=== PATIENT | female | born 1995 | race Caucasian/White ===

== ENCOUNTER 2017-11-14 12:28 | Outpatient (CLI) | payer OTHER ==
[2017-11-14 13:20] LABS: RUPTURE FETAL MEMBRANES NEGATIVE (NEGATIVE)
== END 2017-11-14 14:09 | disposition home or self-care (01) ==
LOC: OBT 12:28 → L-D 12:28 → OBT 14:09
DX: O42.113 Preterm premature rupture of membranes, onset of labor more than 24 hours following rupture, third trimester (principal); Z3A.35 35 weeks gestation of pregnancy
CPT/HCPCS: 76818; 84112

== ENCOUNTER 2017-12-10 13:38 | Inpatient (IN) | payer OTHER ==
[2017-12-10] MEDS ORDERED: MISOPROSTOL 200 MCG TAB PR ×2 (14:00→20:30)
[2017-12-10] MEDS ORDERED: METHYLERGONOVINE 0.2 MG INJ IM ×2 (14:00→20:30)
[2017-12-10] MEDS ORDERED: CARBOPROST 250 MCG INJ IM ×2 (14:00→20:30)
[2017-12-10] MEDS ORDERED: CEFAZOLIN 2 GM/50 ML (PMX) 50 ML IV (14:00)
[2017-12-10] MEDS ORDERED: OXYTOCIN 30 UNITS/LR 500 ML IV ×3 (14:00→20:30)
[2017-12-10] MEDS: LACTATED RINGER'S 1,000 ML IV ×3 (14:08→21:26)
[2017-12-10 14:18] LABS: ADD MAN DIFF? NO
[2017-12-10 14:20] LABS: WHITE BLOOD COUNT 13.1 10^3/ul (4.8-10.8)
[2017-12-10 14:20] LABS: BASOPHILS % 0.2 % (0.0-2.0); EOSINOPHILS % 0.3 % (0.0-7.0); HEMATOCRIT 38.4 % (37.0-47.0); HEMOGLOBIN 14.1 g/dl (12.0-16.0); LYMPHOCYTES # 2.8 10^3/ul (0.8-2.9); LYMPHOCYTES % 21.5 % (15.0-51.0); MEAN CORPUSCULAR HEMOGLOBIN 31.9 pg (29.0-33.0); MEAN CORPUSCULAR HGB CONC 36.7 g/dl (32.0-37.0); MEAN CORPUSCULAR VOLUME 86.9 fl (82.0-101.0); MEAN PLATELET VOLUME 11.3 fl (7.4-10.4); MONOCYTE # 0.7 10^3/ul (0.3-0.9); NEUTROPHIL # 9.5 10^3/ul (1.6-7.5); NEUTROPHILS % 72.2 % (39.0-77.0); PLATELET COUNT 201 10^3/UL (140-415); RED BLOOD COUNT 4.42 10^6/ul (4.20-5.40); RED CELL DISTRIBUTION WIDTH 12.5 % (11.5-14.5)
[2017-12-10 14:38] LABS: INR 0.95; PROTIME 12.8 Sec (11.9-14.9)
[2017-12-10 14:39] LABS: PARTIAL THROMBOPLASTIN TIME 27.5 Sec (25.0-35.0)
[2017-12-10 15:12] LABS: HEPATITIS B SURFACE ANTIGEN NEGATIVE (NEGATIVE)
[2017-12-10] MEDS ORDERED: morphine SULFATE/PF (10 MG/10 ML) INJ (15:49)
[2017-12-10] MEDS ORDERED: DEXAMETHASONE 4 MG/ML 1 ML INJ (15:57)
[2017-12-10] MEDS ORDERED: FENTAnyl 50 MCG/ML VIAL (15:57)
[2017-12-10] MEDS ORDERED: ONDANSETRON 4 MG INJ (15:57)
[2017-12-10] MEDS ORDERED: NALOXONE (0.4 MG/ML) INJ IV (17:30)
[2017-12-10] MEDS ORDERED: morphine 2 MG INJ IV ×2 (17:30)
[2017-12-10] MEDS ORDERED: ZOLPIDEM 5 MG TAB PO (17:30)
[2017-12-10 17:31] LABS: RAPID PLASMA REAGIN NONREACTIVE (NR)
[2017-12-10] MEDS: ONDANSETRON 4 MG INJ IV (17:33)
[2017-12-10] MEDS ORDERED: OXYCODONE/ACETAMINOPHEN (5/325) TAB PO (20:30)
[2017-12-10] MEDS ORDERED: NA PHOSPHATE/BIPHOS 133 ML ENEMA PR (20:30)
[2017-12-10] MEDS: SENNA/DOCUSATE NA (8.6MG/50MG) TAB PO (21:00)
[2017-12-10] MEDS: KETOROLAC 30 MG INJ IV (21:26)
[2017-12-10] MEDS: CEFAZOLIN 2 GM/50 ML (PMX) 50 ML IV (21:26)
[2017-12-10] MEDS: IBUPROFEN 800 MG TAB PO (22:00)
[2017-12-11] MEDS: CEFAZOLIN 2 GM/50 ML (PMX) 50 ML IV ×2 (04:14→12:22)
[2017-12-11] MEDS: DIPHENHYDRAMINE 50 MG INJ IV (05:42)
[2017-12-11] MEDS: LACTATED RINGER'S 1,000 ML IV ×3 (05:42→20:03)
[2017-12-11] MEDS: CLINDAMYCIN 300 MG CAP PO ×2 (06:00→12:22)
[2017-12-11] MEDS: IBUPROFEN 800 MG TAB PO ×3 (06:00→21:16)
[2017-12-11 08:43] LABS: ADD MAN DIFF? NO
[2017-12-11 08:56] LABS: ABNORMAL IP MESSAGE 1; BASOPHILS % 0.2 % (0.0-2.0); HEMATOCRIT 33.1 % (37.0-47.0); HEMOGLOBIN 12.1 g/dl (12.0-16.0); LYMPHOCYTES % 13.4 % (15.0-51.0); MEAN CORPUSCULAR HEMOGLOBIN 32.1 pg (29.0-33.0); MEAN CORPUSCULAR HGB CONC 36.6 g/dl (32.0-37.0); MEAN CORPUSCULAR VOLUME 87.8 fl (82.0-101.0); MEAN PLATELET VOLUME 11.2 fl (7.4-10.4); MONOCYTE # 1.9 10^3/ul (0.3-0.9); MONOCYTES % 8.6 % (0.0-11.0); NEUTROPHIL # 17.1 10^3/ul (1.6-7.5); NEUTROPHILS % 77.2 % (39.0-77.0); PLATELET COUNT 178 10^3/UL (140-415); RED BLOOD COUNT 3.77 10^6/ul (4.20-5.40); RED CELL DISTRIBUTION WIDTH 12.3 % (11.5-14.5)
[2017-12-11 08:56] LABS: WHITE BLOOD COUNT 22.2 10^3/ul (4.8-10.8)
[2017-12-11] MEDS: SENNA/DOCUSATE NA (8.6MG/50MG) TAB PO ×2 (09:13→21:16)
[2017-12-11] MEDS: KETOROLAC 30 MG INJ IV (11:04)
[2017-12-11] MEDS: CLINDAMYCIN 900 MG/D5W (PMX) 50 ML IVPB ×2 (14:47→20:48)
[2017-12-11] MEDS: GENTAMICIN 80 MG/NS (PMX) 50 ML IVPB ×2 (15:47→23:07)
[2017-12-11] MEDS: HYDROCODONE/APAP (5/325) TAB PO (17:46)
[2017-12-11] MEDS: LANOLIN 7 GM TUBE TOP (17:46)
[2017-12-11] MEDS: BISACODYL 10 MG SUPP PR ×2 (21:16→21:51)
[2017-12-12] MEDS: CLINDAMYCIN 900 MG/D5W (PMX) 50 ML IVPB ×4 (02:38→22:18)
[2017-12-12] MEDS: LACTATED RINGER'S 1,000 ML IV ×3 (04:03→20:03)
[2017-12-12] MEDS: IBUPROFEN 800 MG TAB PO ×3 (05:35→21:35)
[2017-12-12] MEDS: GENTAMICIN 80 MG/NS (PMX) 50 ML IVPB ×3 (06:28→23:19)
[2017-12-12 09:16] LABS: ADD MAN DIFF? NO
[2017-12-12 09:20] LABS: WHITE BLOOD COUNT 18.5 10^3/ul (4.8-10.8)
[2017-12-12 09:20] LABS: BASOPHILS % 0.2 % (0.0-2.0); EOSINOPHILS % 0.2 % (0.0-7.0); HEMATOCRIT 31.3 % (37.0-47.0); HEMOGLOBIN 11.4 g/dl (12.0-16.0); LYMPHOCYTES # 2.9 10^3/ul (0.8-2.9); LYMPHOCYTES % 15.5 % (15.0-51.0); MEAN CORPUSCULAR HEMOGLOBIN 32.2 pg (29.0-33.0); MEAN CORPUSCULAR HGB CONC 36.4 g/dl (32.0-37.0); MEAN CORPUSCULAR VOLUME 88.4 fl (82.0-101.0); MEAN PLATELET VOLUME 11.3 fl (7.4-10.4); MONOCYTE # 1.5 10^3/ul (0.3-0.9); MONOCYTES % 7.8 % (0.0-11.0); NEUTROPHILS % 75.8 % (39.0-77.0); PLATELET COUNT 169 10^3/UL (140-415); RED BLOOD COUNT 3.54 10^6/ul (4.20-5.40)
[2017-12-12] MEDS: SENNA/DOCUSATE NA (8.6MG/50MG) TAB PO ×2 (09:23→20:52)
[2017-12-12] MEDS: HYDROCODONE/APAP (5/325) TAB PO (11:59)
[2017-12-13] MEDS: CLINDAMYCIN 900 MG/D5W (PMX) 50 ML IVPB ×3 (03:56→12:00)
[2017-12-13] MEDS: LACTATED RINGER'S 1,000 ML IV ×2 (04:03→12:03)
[2017-12-13] MEDS: IBUPROFEN 800 MG TAB PO ×2 (06:02→14:00)
[2017-12-13] MEDS: GENTAMICIN 80 MG/NS (PMX) 50 ML IVPB ×2 (06:37→14:30)
[2017-12-13] MEDS: DIPHTH/TET/ACEL PERTUSS (ADULT) 0.5 ML VIAL IM* (07:25)
[2017-12-13] MEDS: SENNA/DOCUSATE NA (8.6MG/50MG) TAB PO (09:22)
[2017-12-13] MEDS: MEASLES,MUMPS,RUBELLA VACCINE INJ SC* (09:23)
[2017-12-13 10:34] LABS: ADD MAN DIFF? NO
[2017-12-13 10:35] LABS: BASOPHILS % 0.2 % (0.0-2.0); EOSINOPHILS # 0.2 10^3/ul (0.0-0.5); EOSINOPHILS % 1.1 % (0.0-7.0); HEMATOCRIT 32.1 % (37.0-47.0); HEMOGLOBIN 11.8 g/dl (12.0-16.0); LYMPHOCYTES # 2.2 10^3/ul (0.8-2.9); LYMPHOCYTES % 15.8 % (15.0-51.0); MEAN CORPUSCULAR HEMOGLOBIN 32.2 pg (29.0-33.0); MEAN CORPUSCULAR HGB CONC 36.8 g/dl (32.0-37.0); MEAN CORPUSCULAR VOLUME 87.7 fl (82.0-101.0); MEAN PLATELET VOLUME 10.9 fl (7.4-10.4); MONOCYTES % 7.1 % (0.0-11.0); NEUTROPHIL # 10.3 10^3/ul (1.6-7.5); NEUTROPHILS % 75.1 % (39.0-77.0); PLATELET COUNT 170 10^3/UL (140-415); RED BLOOD COUNT 3.66 10^6/ul (4.20-5.40); RED CELL DISTRIBUTION WIDTH 12.8 % (11.5-14.5)
[2017-12-13 10:35] LABS: WHITE BLOOD COUNT 13.7 10^3/ul (4.8-10.8)
[2017-12-13] MEDS: HYDROCODONE/APAP (5/325) TAB PO (10:55)
== END 2017-12-13 15:21 | disposition home or self-care (01) | DRG 766 ==
LOC: L-D 13:38 → PP1 20:16
PROVIDERS: Obstetrics & Gynecology
PROC: 10D00Z1 Extraction of Products of Conception, Low, Open Approach (ICD-10-PCS; principal; 2017-12-10 15:30)
DX: O34.211 Maternal care for low transverse scar from previous cesarean delivery (principal); Z37.0 Single live birth; Z3A.39 39 weeks gestation of pregnancy
CPT/HCPCS: 85025; 85610; 85730; 86592; 86850; 86900; 86901; 87340; 94760; 99464